=== PATIENT | female | born 1975 | race Two or more races ===

== ENCOUNTER 2018-06-13 05:48 | Day surgery (SDC) | payer OTHER ==
[2018-06-13] MEDS ORDERED: SOD CHLORIDE 0.9% 1,000 ML IV (06:00)
[2018-06-13] MEDS ORDERED: CEFAZOLIN 2 GM/50 ML (PMX) 50 ML IVPB (06:00)
[2018-06-13] MEDS ORDERED: CEFAZOLIN 1 GM INJ (07:00)
[2018-06-13] MEDS ORDERED: PROPOFOL 200 MG INJ (07:00)
[2018-06-13] MEDS ORDERED: SEVOFLURANE 15 MIN (07:00)
[2018-06-13] MEDS: BUPIVACAINE 0.25% (MPF) 30 ML INJ (07:04)
[2018-06-13 07:08] LABS: ADD MAN DIFF? NO
[2018-06-13 07:09] LABS: BASOPHIL # 0.1 10^3/ul (0.0-0.1); BASOPHILS % 0.6 % (0.0-2.0); EOSINOPHILS # 0.4 10^3/ul (0.0-0.5); EOSINOPHILS % 4.2 % (0.0-7.0); HEMATOCRIT 33.2 % (37.0-47.0); HEMOGLOBIN 10.1 g/dl (12.0-16.0); LYMPHOCYTES # 1.7 10^3/ul (0.8-2.9); LYMPHOCYTES % 19.2 % (15.0-51.0); MEAN CORPUSCULAR HEMOGLOBIN 22.7 pg (29.0-33.0); MEAN CORPUSCULAR HGB CONC 30.4 g/dl (32.0-37.0); MEAN CORPUSCULAR VOLUME 74.8 fl (82.0-101.0); MONOCYTE # 0.5 10^3/ul (0.3-0.9); NEUTROPHIL # 6.1 10^3/ul (1.6-7.5); NEUTROPHILS % 69.5 % (39.0-77.0); PLATELET COUNT 435 10^3/UL (140-415); RED BLOOD COUNT 4.44 10^6/ul (4.20-5.40); RED CELL DISTRIBUTION WIDTH 17.3 % (11.5-14.5)
[2018-06-13 07:09] LABS: WHITE BLOOD COUNT 8.8 10^3/ul (4.8-10.8)
[2018-06-13 07:13] LABS: INR 0.88; PT RATIO 0.9
[2018-06-13 07:18] LABS: ALANINE AMINOTRANSFERASE 24 IU/L (13-69); ALBUMIN/GLOBULIN RATIO 1.14; ALKALINE PHOSPHATASE 54 IU/L (42-121); ANION GAP 10 (5-13); ASPARTATE AMINO TRANSFERASE 20 IU/L (15-46); BILIRUBIN,INDIRECT 0.1 mg/dl (0-1.1); BILIRUBIN,TOTAL 0.1 mg/dl (0.2-1.3); BLOOD UREA NITROGEN 14 mg/dl (7-20); CARBON DIOXIDE 23 mmol/L (21-31); CHLORIDE 105 mmol/L (97-110); CREATININE 0.64 mg/dl (0.44-1.00); Estimated GFR > 60 mL/min (>60); GLUCOSE 105 mg/dl (70-220); POTASSIUM 4.2 mmol/L (3.5-5.1); SODIUM 138 mmol/L (135-144); TOTAL PROTEIN 7.5 g/dl (6.1-8.1)
[2018-06-13] MEDS ORDERED: DIPHENHYDRAMINE 50 MG INJ IV (07:30)
[2018-06-13] MEDS ORDERED: HYDROmorphONE 1 MG/5 ML IV SYRINGE IV ×2 (07:30)
[2018-06-13] MEDS ORDERED: PROCHLORPERAZINE 10 MG INJ IV (07:30)
[2018-06-13] MEDS ORDERED: FENTAnyl 50 MCG/ML VIAL IV ×3 (07:30)
[2018-06-13] MEDS ORDERED: FENTAnyl 50 MCG/ML VIAL (07:34)
[2018-06-13] MEDS ORDERED: MIDAZOLAM 1 MG/ML 2 ML INJ (07:34)
[2018-06-13] MEDS ORDERED: LIDOCAINE 2% (SDV) 5 ML INJ (07:41)
[2018-06-13] MEDS ORDERED: SUCCINYLCHOLINE CHLORIDE 100 MG/5 ML SYG IV (07:41)
[2018-06-13] MEDS ORDERED: PROPOFOL 20 ML (07:41)
[2018-06-13] MEDS ORDERED: ROCURONIUM 50 MG INJ (07:42)
[2018-06-13] MEDS ORDERED: ROPIVACAINE 0.5 % 30 ML VIAL (07:43)
[2018-06-13 07:54] LABS: PARTIAL THROMBOPLASTIN TIME 24.6 Sec (23.0-35.0)
[2018-06-13] MEDS ORDERED: ONDANSETRON 4 MG INJ (08:14)
[2018-06-13] MEDS ORDERED: DEXAMETHASONE 4 MG/ML 5 ML INJ (08:14)
[2018-06-13] MEDS ORDERED: FAMOTIDINE 20 MG INJ (08:14)
[2018-06-13] MEDS ORDERED: LABETALOL HCL 20MG INJ (08:20)
[2018-06-13] MEDS ORDERED: NEOSTIGMINE 3 MG/3 ML SYRINGE ×2 (08:22→08:25)
[2018-06-13] MEDS ORDERED: GLYCOPYRROLATE 0.4 MG INJ ×2 (08:22→08:25)
[2018-06-13] MEDS ORDERED: KETOROLAC 30 MG INJ (08:29)
[2018-06-13] MEDS ORDERED: HYDROCODONE/APAP (5/325) TAB PO (09:00)
[2018-06-13] MEDS: MEPERIDINE 25 MG INJ IV (09:07)
[2018-06-13] MEDS: ONDANSETRON 4 MG INJ IV (09:07)
[2018-06-13] MEDS: HYDROmorphONE 1 MG/5 ML IV SYRINGE IV (09:31)
[2018-06-13] MEDS: OXYCODONE/ACETAMINOPHEN (5/325) TAB PO (09:58)
== END 2018-06-13 10:50 | disposition home or self-care (01) ==
LOC: SDS 05:48
DX: K80.10 Calculus of gallbladder with chronic cholecystitis without obstruction (principal); E03.9 Hypothyroidism, unspecified
CPT/HCPCS: 47562; 80053; 85025; 85610; 85730; 88304